=== PATIENT | female | born 2000 | race Caucasian/White ===

== ENCOUNTER 2024-02-04 09:25 | Emergency (ER) | payer OTHER ==
[2024-02-04 09:51] VITALS: BP 136/84; O2SAT 96
--- NOTE | 2024-02-04 09:52 | ED Physician Documentation ---
PD HPI BACK PAIN - Stated complaint Stated Complaint: LOWER BACK PX - Chief complaint Chief Complaint: Back Pain - History obtained from History obtained from: Patient - Additional information Additional information: She developed some back pain while bending over to pick out hand her baby about a week ago (she is breast-feeding) and continues to have it. It is in the low back. Does not radiate. No weakness, numbness, tingling, saddle anesthesia, or fevers. No history of back pain. She has tried Tylenol which is helpful but wonders what else she could take while breast-feeding. PD PAST MEDICAL HISTORY - Past Medical History Past Medical History: No - Past Surgical History Past Surgical History: No - Present Medications Home Medications: Ambulatory Orders Medication Instructions Recorded Confirmed Ketorolac [Toradol] 10 mg PO Q6H PRN #15 tablet 02/04/24 Lidocaine Patch 5% [Lidoderm Patch] 1 patch TOP DAILY PRN #10 patch 02/04/24 - Allergies Allergies/Adverse Reactions: Allergies Allergy/AdvReac Type Severity Reaction Status Date / Time No Known Drug Allergies Allergy Verified 02/04/24 09:48 - Social History Does the pt smoke?: No Smoking Status: Never smoker Does the pt drink ETOH?: Yes Does the pt have substance abuse?: No - Immunizations Immunizations are current?: Yes PD ED PE NORMAL - Vitals Vital signs reviewed: Yes - General General: Alert and oriented X 3, No acute distress - Abdomen Abdomen: Non tender - Back Back: No spinal TTP, Other (The patient has equal and normal Achilles and patellar reflexes bilaterally. Normal sensation in all areas of the legs. Patient denies saddle anesthesia. Normal strength in flexion-extension at the ankles, knees, and flexion of the hips.) Results - Vitals Vitals: Vital Signs - 24 hr 02/04/24 09:31 Temperature 37.0 C Heart Rate 89 Respiratory 15 Rate Blood Pressure 136/84 H O2 Saturation 96 Oxygen O2 Source Room air PD Medical Decision Making - ED course ED course: This patient has seemingly uncomplicated musculoskeletal back pain. The patient has no "red flags." Specifically denies IV drug use, fevers, incontinence, saddle anesthesia. Spinal epidural abscess was considered, given that the patient has no fever, is not diabetic, has no spinal tenderness, does not use IV drugs, and has no bilateral neurologic symptoms, the diagnosis of spinal epidural abscess is considered exceedingly unlikely. Departure - Departure Disposition: 01 Home, Self Care Clinical Impression: Back pain Qualifiers: Back pain location: low back pain Chronicity: acute Back pain laterality: midline Sciatica presence: without sciatica Qualified Code(s): M54.50 - Low back pain, unspecified Condition: Good Record reviewed to determine appropriate education?: Yes Instructions: ED Neck Back Pain General Prescriptions: Lidocaine Patch 5% [Lidoderm Patch] 1 patch TOP DAILY PRN #10 patch PRN Reason: pain Ketorolac [Toradol] 10 mg PO Q6H PRN #15 tablet PRN Reason: back pain Comments: I sent your [facility] [place]. As discussed, it does not seem like there is any serious cause of the back pain, more like muscle spasm and strain, you can do heat and gentle stretching and you can also take 2 extra strength Tylenol every 6 hours as needed for pain in addition to the prescribed anti-inflammatory and lidocaine patch. Follow-up with your doctor in a week if not better, return for new or worsening symptoms.
== END 2024-02-04 09:56 | disposition home or self-care (01) ==
LOC: ED 09:25
DX: M54.50 Low back pain, unspecified (principal)
CPT/HCPCS: 99282; 99283